=== PATIENT | female | born 1985 | race Caucasian/White ===

== ENCOUNTER 2018-11-24 10:17 | Emergency (ER) | payer MEDICAID ==
[~2018-11-24] VITALS: Ht 160 cm; Wt 87.1 kg
[~2018-11-24 10:17] MED LIST: PREN-6 PO
[2018-11-24 10:23] VITALS: BP 131/77; PULSE 77; RESP 18; Ht 160 cm; Wt 87.1 kg
[2018-11-24] MEDS ORDERED: ACET500C5 PO (12:07)
[2018-11-24] MEDS ORDERED: BENZ1LOZ57 MM (12:07)
--- NOTE | 2018-11-24 13:50 | ERD ---
ER Documentation Chief Complaint Chief Complaint NECK Pain rad shoulder and front x 4 mos HPI This is a 33-year-old female patient who presents emergency room with complaint of sensation of lump in her throat with a pain that radiates down the front of the right chest and to her right breast. Pain has been increasing in frequency over the last week and a half. No fevers, no cough, no breast swelling, no nipple discharge, no CP, no SOB. States cold sensation travels from her throat down her right chest into her right breast when she swallows food. No stridor. History and physical exam and plan of care discussion performed via operations assistant services ROS All systems reviewed and are negative except as per history of present illness. Medications Home Meds Active Scripts Benzocaine/Menthol (Chloraseptic Sore Throat Lozng) 1 Each Lozenge, 1 EACH MM TID for throat pain for 7 Days, #21 LOZENGE Prov:JONATAN SAMANO [employer] 11/24/18 Acetaminophen* (Tylophen*) 500 Mg Capsule, 2 CAP PO Q8H PRN for PAIN AND OR ELEVATED TEMP, #20 CAP Prov:JONATAN SAMANO [employer] 11/24/18 Reported Medications Vits #93-Iron Fum-FA ( Formula) 1 Each Tablet, 1 TAB PO DAILY, TAB 02/04/18 Allergies Allergies: Coded Allergies: No Known Allergy (Unverified , 02/04/18) PMhx/Soc Medical and Surgical Hx: pt denies Medical Hx, pt denies Surgical Hx Hx Alcohol Use: No Hx Substance Use: No Hx Tobacco Use: No Smoking Status: Never smoker FmHx Family History: No diabetes, No coronary disease, No other Physical Exam Vitals Vital Signs Date Temp Pulse Resp B/P (MAP) Pulse Ox O2 O2 Flow FiO2 Time Delivery Rate 11/24/18 98.1 77 18 131/77 99 10:23 (95) Physical Exam Const: No acute distress Head: Atraumatic Eyes: Normal Conjunctiva ENT: Normal External Ears, TM clear BL, Nose withut discharge, pharynx pink, moist, no lesions, no exudate, no petechiae. Uvula midline, no swelling. Neck: Full range of motion. No meningismus. No lymphadenopathy, no thyromegaly. Resp: Clear to auscultation bilaterally, no wheezing, no stridor, no drooling. Cardio: Regular rate and rhythm, no murmurs Abd: Soft, non tender, non distended. Normal bowel sounds Skin: No petechiae or rashes Back: No midline or flank tenderness Breast: Right breast without dimpling, no nipple discharge, no redness, no swelling, no lesions, no lumps, no lymphadenopathy Ext: No cyanosis, or edema Neur: Awake and alert Psych: Normal Mood and Affect Procedures/MDM PROCEDURES/MDM DIAGNOSTIC IMAGING: Read by radiologist. Not indicated MDM: Is a 33-year-old female patient who presents to the emergency room with complaint of sensation of discomfort when swallowing, states sensation feels like it is cool and traveling down into her breast when she swallows food. Denies sore throat, fever, cough, malaise, any other symptoms. She has clear speech and is able to control her secretions. It is unlikely he has a strep pharyngitis as her Centor score is 0. It is unlikely that she has mononucleosis as he does not have pharyngitis, lymphadenopathy, splenomegaly, or unrelenting fatigue. I have a low suspicion for meningitis as the patient is not toxic appearing, no nuchal rigidity, and no altered mental status. Exam and w/u not consistent w/ deep space infection of the face, throat, or mastoids. No evidence of impending airway compromise or meningitis. I have a very low suspicion for mastitis or malignancy as patient does not have mass, nipple discharge, and breast skin and shape is unchanged and normothermic. Instructed patient on use of warm compresses to area, use of anesthetic throat lozenges, and follow-up with her PMD for possible referral to ENT. Instructed patient to se her SHOP TECH if breast discomfort continues. Patient instructed to return to ER with s/sx of infection or worsening or changing condition. Clinical impression discussed with the patient and mother who agrees with management. The patient is stable to be treated outpatient and will be discharged home. Disclaimer: Inadvertent spelling and grammatical errors are likely due to EHR/dictation software use and do not reflect on the overall quality of patient care. Also, please note that the electronic time recorded on this note does not necessarily reflect the actual time of the patient encounter. DISPOSITION and PLAN: RX: The patient has been discharge home to follow-up with community physician. Departure Diagnosis: Primary Impression: Throat discomfort Condition: Stable Patient Instructions: Self-Care for Sore Throats Referrals: [facility] Usted se gan hecho un examen mdico de control que le indica que no est en halley condicin que requiera tratamiento urgente en el Departamento de Emergencia. Un estudio ms profundo y el tratamiento de diaz condicin pueden esperar sin ningn riesgo hasta que usted sea atendida/o en el consultorio de diaz mdico o halley clnica. Es responsabilidad suya arreglar halley nelia para el seguimiento del jus. MANEJO DE CONDICIONES NO URGENTES EN EL FUTURO 1) Si usted tiene un mdico de atencin primaria: Usted debera llamar a diaz mdico de atencin primaria antes de venir al departamento de emergencia. Despus de las horas de consultorio, diaz doctor o diaz asociado/a est disponible por telfono. El mdico o enfermero de ezra en el servicio telefnico puede asesorarle por david medio para atender el problema, o jus contrario se puede programar halley nelia. 2) Si usted no tiene un mdico de atencin primaria: Llame al mdico o clnica de referencia que aparece abajo gianna las horas de consultorio para hacer halley nelia para que le vean. CLINICAS: [facility] [phone] [facility] [phone] [facility] [phone] [facility] [phone] [facility] [phone] [facility]. [phone] [address] [facility] [facility] YOU HAVE RECEIVED A MEDICAL SCREENING EXAM AND THE RESULTS INDICATE THAT YOU DO NOT HAVE A CONDITION THAT REQUIRES URGENT TREATMENT IN THE EMERGENCY DEPARTMENT. FURTHER EVALUATION AND TREATMENT OF YOUR CONDITION CAN WAIT UNTIL YOU ARE SEEN IN YOUR DOCTORS OFFICE WITHIN THE NEXT 1-2 DAYS. IT IS YOUR RESPONSIBILITY TO MAKE AN APPOINTMENT FOR FOLOW-UP CARE. IF YOU HAVE A PRIMARY DOCTOR --you should call your primary doctor and schedule an appointment IF YOU DO NOT HAVE A PRIMARY DOCTOR YOU CAN CALL OUR PHYSICIAN REFERRAL HOTLINE AT IF YOU CAN NOT AFFORD TO SEE A PHYSICIAN YOU CAN CHOSE FROM THE FOLLOWING FORMERLY [facility] CLINICS [facility] [address] [facility] [address] [facility]. [facility] [address] [facility] [facility] [address] [facility] [facility] [address] [facility]. [facility]. [address] [facility]. [facility] () Usted se gan hecho un examen mdico de control que le indica que no est en halley condicin que requiera tratamiento urgente en el Departamento de Emergencia. Un estudio ms profundo y el tratamiento de diaz condicin pueden esperar sin ningn riesgo hasta que usted sea atendida/o en el consultorio de diaz mdico o halley clnica. Es responsabilidad suya arreglar halley nelia para el seguimiento del jus. MANEJO DE CONDICIONES NO URGENTES EN EL FUTURO 1) Si usted tiene un mdico de atencin primaria: Usted debera llamar a diaz mdico de atencin primaria antes de venir al departamento de emergencia. Despus de las horas de consultorio, diaz doctor o diaz asociado/a est disponible por telfono. El mdico o enfermero de ezra en el servicio telefnico puede asesorarle por david medio para atender el problema, o jus contrario se puede programar halley nelia. 2) Si usted no tiene un mdico de atencin primaria: Llame al mdico o condado institucions de referencia que aparece abajo gianna las horas de consultorio para hacer halley nelia para que le vean. SI USTED NO PUEDE PAGAR PARA YARI UN MEDICO puede ir a: [facility] [address] [place] [address] [facility] [address] [place] [address] [facility] [address] [place] [address] [facility] [address] [place] [address] Additional Instructions: Thank you very much for allowing us to participate in your care. Your health and safety is our top priority at [facility]. Call your primary care doctor TOMORROW for an appointment during the next 2-4 days and bring all the information and medications prescribed. Have prescriptions filled and follow precisely the directions on the label. If the symptoms get worse and your provider is unavailable, return to the Emergency Department immediately. USE THROAT LOZENGES FOR THROAT DISCOMFORT USE TYLENOL FOR DISCOMFORT FOLLOW-UP WITH PRIMARY CARE PROVIDER IF IT THROAT CONTINUES YOU MAY NEED REFERRAL FOR ENT SEE RECREATIONAL THERAPY TECHNICIAN IF THE BREAST TENDERNESS WORSENS RETURN TO THE EMERGENCY ROOM IMMEDIATELY FOR WORSENING OF SORE THROAT, DIFFICULTY SWALLOWING, FEVER, WHEEZING, RED, HOT, SWELLING TO BREAST OR NIPPLE DISCHARGE JONATAN SAMANO NP Nov 24, 2018 13:50
== END 2018-11-24 12:36 | disposition home or self-care (01) ==
LOC: FTE 10:17
DX: R07.0 Pain in throat (principal)
CPT/HCPCS: 99283